=== PATIENT | female | born 1975 | race Caucasian/White ===

== ENCOUNTER 2019-07-24 17:51 | Emergency (ER) | payer OTHER ==
[~2019-07-24] VITALS: Ht 182.9 cm; Wt 96.2 kg
[2019-07-24] MEDS ORDERED: CRUTCH2 XX (18:56)
== END 2019-07-24 19:47 | disposition home or self-care (01) ==
LOC: ER 17:51
DX: S82.61XA Displaced fracture of lateral malleolus of right fibula, initial encounter for closed fracture (principal); Z91.040 Latex allergy status; W18.42XA Slipping, tripping and stumbling without falling due to stepping into hole or opening, initial encounter
CPT/HCPCS: 29505; 73610; 99283-25